=== PATIENT | female | born 1985 | race Caucasian/White ===

== ENCOUNTER 2024-04-30 14:38 | Outpatient (CLI) | payer OTHER | END 2024-04-30 23:59 | disposition home or self-care (01) | LOC: MRI 14:38 | PROVIDERS: ATTEND Anesthesiology Pain Medicine | DX: M51.17 Intervertebral disc disorders with radiculopathy, lumbosacral region (principal); M99.63 Osseous and subluxation stenosis of intervertebral foramina of lumbar region; G89.4 Chronic pain syndrome; M48.07 Spinal stenosis, lumbosacral region; Z79.899 Other long term (current) drug therapy | CPT/HCPCS: 72148 ==

== ENCOUNTER 2025-04-09 09:14 | Outpatient (CLI) | payer OTHER ==
--- NOTE | 2025-04-09 13:12 | RADIOLOGY REPORT ---
PROCEDURE: MR MRI LUMBAR SPINE INDICATION: STENOSIS;DISC DISPLACEMENT Exam Date: 04/09/2025 09:29 AM COMPARISON: MR MRI LUMBAR SPINE on DOS: 04/30/24 TECHNIQUE: MRI lumbar spine without intravenous contrast. FINDINGS: The lumbar alignment is intact. There are degenerative endplate changes including modic endplate ch anges with anterior and lateral osteophytes throughout the lumbar spine. The visualized distal spinal cord and conus medullaris are within normal limits. The conus medullaris appears to terminate withi n normal limits. The visualized retroperitoneal and paraspinal soft tissues are unremarkable. The following axial levels are detailed below: T12-L1: Unremarkable. L1-L2: Unremarkable. L2-L3: Unremarkable. L3-L4: There is a moderate circumferential disc bulge complicated by facet arthropathy associated w ith mild to moderate bilateral neuroforaminal stenosis. No significant central canal stenosis. L4-L5: There is a moderate circumferential disc bulge complicated by facet arthropathy associated w ith moderate bilateral neuroforaminal stenosis. No significant central canal stenosis. L5-S1: There is a moderate circumferential disc bulge with a central component complicated by facet arthropathy associated with moderate to severe bilateral neuroforaminal stenosis. No significant cent ral canal stenosis. IMPRESSION: 1. 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 No significant central canal stenosis. HS:Y
== END 2025-04-09 23:59 | disposition home or self-care (01) ==
LOC: MRI02 09:14
PROVIDERS: ATTEND Specialist
DX: M51.17 Intervertebral disc disorders with radiculopathy, lumbosacral region (principal); M47.27 Other spondylosis with radiculopathy, lumbosacral region; M48.07 Spinal stenosis, lumbosacral region
CPT/HCPCS: 72148